=== PATIENT | female | born 1985 | race African-American/Black ===

== ENCOUNTER 2017-01-14 01:03 | Emergency (ER) | payer MEDICAID ==
[~2017-01-14] VITALS: Ht 162.6 cm; Wt 54.4 kg
[2017-01-14 01:58] LABS: Basophils # (auto) 0 uL; Basophils % (auto) 0.5 % (0.0-2.0); Eosinophils # (auto) 0.2 uL; Eosinophils % (auto) 3.7 % (0.0-7.0); Hematocrit 35.8 % (36.0-46.0); Hemoglobin 11.8 g/dL (12.2-16.2); Lymphocytes # (auto) 2.1 uL; Lymphocytes % (auto) 35.6 % (10.0-50.0); Mean Corpuscular Hemoglobin 28.8 pg (28.0-32.0); Mean Corpuscular Volume 87.5 fL (80.0-100.0); Mean Platelet Volume 9.8 fL (7.4-10.4); Monocytes # (auto) 0.4 uL; Monocytes % (auto) 7.3 % (0.0-12.0); Neutrophils # (auto) 3.2 uL; Neutrophils % (auto) 52.9 % (37.0-80.0); Platelet Count (auto) 202 10^3/uL (140-450); Red Cell Distribution Width 13.9 % (11.6-16.0)
[2017-01-14 02:12] LABS: Amylase 56 U/L (25-115)
[2017-01-14 02:13] LABS: Urine Bilirubin Negative (Negative); Urine Blood Negative /uL (Negative); Urine Color Yellow (Yellow); Urine Glucose Normal (Normal); Urine Ketone TRACE (Negative); Urine Nitrite Negative (Negative); Urine RBC 2 /hpf (0 - 4); Urine Squamous Epithelial Cell FEW /hpf (<5); Urine Urobilinogen Normal (Negative)
[2017-01-14 02:16] LABS: INR 1.02 (0.9-1.15); Partial Thromboplastin Time 26.7 sec (22.64-33.71)
[2017-01-14 07:22] VITALS: BP 116/70
== END 2017-01-14 07:30 | disposition home or self-care (01) ==
LOC: ER 01:06
DX: N39.0 Urinary tract infection, site not specified (principal)
CPT/HCPCS: 36415; 74176; 81001; 81025; 82150; 83690; 85025; 85610; 85730

== ENCOUNTER 2017-01-19 02:29 | Emergency (ER) | payer MEDICAID ==
[~2017-01-19] VITALS: Ht 162.6 cm; Wt 54.4 kg
[2017-01-19 03:18] VITALS: BP 114/64
== END 2017-01-19 07:02 | disposition home or self-care (01) ==
LOC: ER 02:29
DX: N39.0 Urinary tract infection, site not specified (principal); S39.012D Strain of muscle, fascia and tendon of lower back, subsequent encounter

== ENCOUNTER 2017-02-27 02:22 | Emergency (ER) | payer MEDICAID ==
[~2017-02-27] VITALS: Ht 162.6 cm; Wt 54.4 kg
[2017-02-27 02:51] VITALS: BP 144/91
[2017-02-27] MEDS ORDERED: IBUPROFEN 600 MG TAB PO ONE (04:15)
== END 2017-02-27 04:51 | disposition home or self-care (01) ==
LOC: ER 02:22
DX: S52.502A Unspecified fracture of the lower end of left radius, initial encounter for closed fracture (principal); V49.60XA Unspecified car occupant injured in collision with unspecified motor vehicles in traffic accident, initial encounter; Y93.89 Activity, other specified; Y99.8 Other external cause status; Y92.410 Unspecified street and highway as the place of occurrence of the external cause
CPT/HCPCS: 29125; 73110; 81002

== ENCOUNTER 2018-01-03 23:26 | Emergency (ER) | payer MEDICAID ==
[~2018-01-03] VITALS: Ht 162.6 cm; Wt 52.2 kg
[2018-01-04 00:56] VITALS: BP 114/76
== END 2018-01-04 03:56 | disposition home or self-care (01) ==
LOC: ER 23:26
DX: S52.502A Unspecified fracture of the lower end of left radius, initial encounter for closed fracture (principal); V89.0XXA Person injured in unspecified motor-vehicle accident, nontraffic, initial encounter; Y93.89 Activity, other specified; Y99.8 Other external cause status; Y92.89 Other specified places as the place of occurrence of the external cause
CPT/HCPCS: 29125; 73110; 73200

== ENCOUNTER 2018-03-27 17:20 | Emergency (ER) | payer MEDICAID ==
[~2018-03-27] VITALS: Ht 165.1 cm; Wt 54.4 kg
[2018-03-27 18:24] VITALS: BP 117/70
== END 2018-03-27 19:02 | disposition home or self-care (01) ==
LOC: ER 17:22
DX: R07.89 Other chest pain (principal)
CPT/HCPCS: 93005

== ENCOUNTER 2018-05-25 00:20 | Emergency (ER) | payer MEDICAID ==
[~2018-05-25] VITALS: Ht 162.6 cm; Wt 52.2 kg
[2018-05-25 01:45] LABS: Basophils # (auto) 0.1 uL; Eosinophils # (auto) 0.2 uL; Eosinophils % (auto) 2.7 % (0.0-7.0); Hematocrit 34.8 % (36.0-46.0); Hemoglobin 12.2 g/dL (12.2-16.2); Lymphocytes # (auto) 2.3 uL; Lymphocytes % (auto) 39.1 % (10.0-50.0); Mean Corpuscular Hemoglobin 30.3 pg (28.0-32.0); Mean Corpuscular Volume 86.6 fL (80.0-100.0); Monocytes # (auto) 0.5 uL; Monocytes % (auto) 8.9 % (0.0-12.0); Neutrophils # (auto) 2.8 uL; Neutrophils % (auto) 48.3 % (37.0-80.0); Nucleated Red Blood Cells % 0.1 %; Platelet Count (auto) 143 10^3/uL (140-450); Red Blood Cells 4.02 10^6/uL (4.0-5.20); White Blood Cell 5.8 10^3/uL (4.4-10.8)
[2018-05-25 02:03] LABS: BUN/Creatinine Ratio 15.6; Calcium 8.7 mg/dL (8.5-10.1); Potassium 3.6 mmol/L (3.5-5.1)
[2018-05-25 03:02] VITALS: BP 133/70
== END 2018-05-25 04:13 | disposition home or self-care (01) ==
LOC: ER 00:29
DX: K64.9 Unspecified hemorrhoids (principal); K59.00 Constipation, unspecified; E11.9 Type 2 diabetes mellitus without complications; I10 Essential (primary) hypertension
CPT/HCPCS: 36415; 74018; 80048; 85025